=== PATIENT | female | born 1945 | race Asian ===

== ENCOUNTER 2018-01-15 18:05 | Inpatient (IN) | payer MEDICAID, SELFPAY ==
[2018-01-15] MEDS ORDERED: Ketorolac Tromethamine 30 MG/ML VIAL ONE (19:14)
[2018-01-15 19:23] LABS: #Lymphocytes 1.8 thou/uL (1.20-3.40); #Monocytes 1.1 thou/uL (0.11-0.59); #Neutrophils 9.2 thou/uL (1.40-6.50); %Basophils 0.1 % (0.0-1.0); %Eosinophils 0.2 % (0.0-10.0); %Lymphocytes 14.7 % (21.0-51.0); %Monocytes 9.3 % (0.0-10.0); %Neutrophils 75.7 % (42.0-75.0); Hemoglobin 11.4 g/dL (12.0-16.0); Mean Corpuscular Hemoglobin 29.9 pg (27.0-31.0); Mean Corpuscular Volume 85.6 fL (78.0-98.0); Mean Platelet Volume 5.8 fL (7.4-10.4); Platelet Count 263 thou/uL (130-400); RBC Distribution Width 11.2 % (11.5-14.5); Red Blood Cell (RBC) Count 3.81 mill/uL (4.20-5.40); White Blood Cell (WBC) Count 12.1 thou/uL (4.8-10.8)
[2018-01-15 19:42] LABS: ALT (SGPT) 8 U/L (8-55); AST (SGOT) 11 U/L (5-34); Albumin 3.8 g/dL (3.4-4.8); Alkaline Phosphatase 47 U/L (40-150); Anion Gap 16 mmol/L (10-20); BUN (Urea Nitrogen) 20 mg/dL (9.8-20.1); Bilirubin, Total 0.7 mg/dL (0.2-1.2); Calc. Creatinine Clearance 0 mL/min (70-130); Calcium 9.2 mg/dL (7.8-10.44); Carbon Dioxide 21 mmol/L (23-31); Chloride 99 mmol/L (98-107); Estimated GFR-MDRD 40; Globulin 4.2 g/dL (2.4-3.5); Glucose 121 mg/dL (83-110); Potassium 3.8 mmol/L (3.5-5.1); Sodium 132 mmol/L (136-145)
--- NOTE | 2018-01-15 19:52 | RAD ---
RADIOGRAPH LEFT FOOT 3 VIEWS: 01/15/18 HISTORY: 72-year-old female with nontraumatic left foot pain and edema. COMPARISON: None. FINDINGS: At the first MTP joint, there is severe joint space narrowing, moderate osteophytosis, moderate scler osis, and mild irregularity of articular surfaces, without significant hallux valgus. Elsewhere, the rest of the joint spaces are maintained, without erosions or large osteophytes. No per iosteal elevation or destructive osseous lesion. Moderate sized plantar calcaneal enthesophyte. 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 POS: PORTILLO
[2018-01-15] MEDS ORDERED: Ondansetron HCl/PF 4 MG/2 ML Vial IVP PRN (23:58)
[2018-01-15] MEDS ORDERED: Acetaminophen 325 MG TAB PO PRN (23:58)
[2018-01-16 00:34] VITALS: BMI 29.2
[2018-01-16 05:19] LABS: #Eosinphils 0.1 thou/uL (0.0-0.7); #Lymphocytes 2.2 thou/uL (1.20-3.40); #Monocytes 1.1 thou/uL (0.11-0.59); #Neutrophils 5.4 thou/uL (1.40-6.50); %Basophils 0.2 % (0.0-1.0); %Eosinophils 1.2 % (0.0-10.0); %Lymphocytes 24.9 % (21.0-51.0); %Neutrophils 61.8 % (42.0-75.0); Hemoglobin 9.9 g/dL (12.0-16.0); Mean Corpuscular HGB CONC 35.1 g/dL (32.0-36.0); Mean Corpuscular Hemoglobin 30.5 pg (27.0-31.0); Mean Corpuscular Volume 86.8 fL (78.0-98.0); Mean Platelet Volume 6.2 fL (7.4-10.4); Platelet Count 218 thou/uL (130-400); RBC Distribution Width 11.1 % (11.5-14.5); Red Blood Cell (RBC) Count 3.23 mill/uL (4.20-5.40); White Blood Cell (WBC) Count 8.8 thou/uL (4.8-10.8)
[2018-01-16 05:34] LABS: Anion Gap 12 mmol/L (10-20); BUN (Urea Nitrogen) 20 mg/dL (9.8-20.1); Calc. Creatinine Clearance 42 mL/min (70-130); Calcium 8.1 mg/dL (7.8-10.44); Carbon Dioxide 22 mmol/L (23-31); Chloride 106 mmol/L (98-107); Estimated GFR-MDRD 41; Glucose 95 mg/dL (83-110); Potassium 4.6 mmol/L (3.5-5.1); Sodium 135 mmol/L (136-145)
[2018-01-16] MEDS ORDERED: Chloraseptic Spray 180 ml Bottle PO PRN (06:57)
[2018-01-16] MEDS ORDERED: Mag-Al 1200 mg/1200 mg/30 ML UDCUP PO PRN (06:57)
[2018-01-16] MEDS ORDERED: Sodium Chloride 0.65% Nasal 44 ML BOT EA NARE PRN (06:57)
[2018-01-16] MEDS ORDERED: Diabetic Tussin 200 MG/10 ML UDCUP PO PRN (06:57)
[2018-01-16] MEDS ORDERED: Zolpidem Tartrate 5 MG TAB PO PRN (06:57)
[2018-01-16] MEDS ORDERED: Milk Of Magnesia 30 ML UDCUP PO PRN (06:57)
[2018-01-16] MEDS ORDERED: Loperamide HCl 2 MG CAP PO PRN (06:57)
[2018-01-16] MEDS ORDERED: hydrALAZINE 20 MG/ML VIAL SLOW IVP PRN (06:57)
[2018-01-16] MEDS ORDERED: Artificial Tears 18 DROP/0.9 ML EA EYE PRN (06:57)
[2018-01-16] MEDS ORDERED: Senokot 8.6 MG TAB PO PRN (06:57)
[2018-01-16] MEDS ORDERED: Loratadine 10 MG TAB PO PRN (06:57)
[2018-01-16] MEDS ORDERED: Ondansetron ODT 4 MG TAB PO PRN (06:57)
[2018-01-16] MEDS ORDERED: Eucerin (Mineral Oil/Petrolatum,White) 30 gm Jar TOP PRN (06:57)
[2018-01-16] MEDS ORDERED: traMADol HCl 50 MG TAB PO PRN (06:58)
[2018-01-16] MEDS: Enoxaparin Sodium 30 MG/0.3 ML SYRINGE SC SCH (08:14)
[2018-01-16] MEDS: Hydrochlorothiazide 25 MG TAB PO SCH (08:15)
[2018-01-16] MEDS: Atenolol 25 MG TAB PO SCH (08:15)
[2018-01-16] MEDS ORDERED: Famotidine 20 MG TAB PO SCH (09:00)
[2018-01-16] MEDS ORDERED: Enoxaparin Sodium 40 MG/0.4 ML SYRINGE SC SCH (09:00)
[2018-01-16] MEDS ORDERED: Ketorolac Tromethamine 30 MG/ML VIAL IVP PRN (09:48)
--- NOTE | 2018-01-16 10:50 | HP ---
PRIMARY CARE PHYSICIAN: [facility] call admission, sometimes patient sees Dr. Henson. REASON FOR ADMISSION: Bilateral foot cellulitis. HISTORY OF PRESENT ILLNESS: A 72-year-old Polish female with a past medical history of hypertensi on who presented to emergency room with complaint of bilateral foot pain. Patient reports that for t he last 3 days, she is experiencing redness, swelling over both feet and pain is getting worse with w alking. She was initially trying pain medications, but day by day, her pain was getting worse and ye sterday she was having extreme difficulty with walking because of pain in her foot and swelling was g etting worse. She did not have any fever or chills at home, but when she presented to emergency room , she was having low grade fever. She denies any trauma or insect bite. She never had this type of problem before. She denies any history of gout. She denies any other complaints including she denie s UTI symptoms. She denies any cough, chest pain, palpitation, shortness of breath. She denies any calf tenderness. She denies any constipation, diarrhea, melena or hematochezia. REVIEW OF SYSTEMS: The following complete review of systems was negative, unless otherwise mentioned in the HPI or below: Constitutional: Weight loss or gain, ability to conduct usual activities. Skin: Rash, itching. Eyes: Double vision, pain. ENT/Mouth: Nose bleeding, neck stiffness, pain, tenderness. Cardiovascular: Palpitations, dyspnea on exertion, orthopnea. Respiratory: Shortness of breath, wheezing, cough, hemoptysis, fever or night sweats. Gastrointestinal: Poor appetite, abdominal pain, heartburn, nausea, vomiting, constipation, or diarr hea. Genitourinary: Urgency, frequency, dysuria, nocturia. Musculoskeletal: Pain, swelling. Neurologic/Psychiatric: Anxiety, depression. Allergy/Immunologic: Skin rash, bleeding tendency. All review of system reviewed with the patient and negative except as mentioned in the HPI. PAST MEDICAL HISTORY: Hypertension and CKD stage 3. PAST SURGICAL HISTORY: Reviewed and negative. PAST PSYCHIATRIC HISTORY: Reviewed and negative. SOCIAL HISTORY: The patient lives in [place] by herself alone. No history o f smoking, alcohol or other illicit drug abuse. FAMILY HISTORY: No strong family history of premature coronary artery disease, stroke or cancer. No family history of diabetes or gout. EMERGENCY ROOM COURSE: Patient was given vancomycin, IV fluid, and Toradol. ALLERGIES: No known drug allergies. CURRENT HOME MEDICATIONS: Atenolol 25 mg p.o. daily, enalapril 10 mg p.o. daily, hydrochlorothiazide 25 mg p.o. daily, tramadol 50 mg p.o. b.i.d. p.r.n. PHYSICAL EXAMINATION: VITAL SIGNS: On arrival, blood pressure 137/79, pulse 85, respiratory rate 18, temperature 99.2, sat uration 96% on room air and weight 68 kilograms. GENERAL: The patient is currently alert, awake, in no obvious acute distress. HEAD: Normocephalic, atraumatic. EYES: Pupils round, reactive to light. Extraocular muscle intact. ENT: Oropharynx within normal limits. Moist mucous membranes. No oral lesion, no pharyngeal erythe ma, no exudate. NECK: Supple, no JVD, no thyromegaly, no carotid bruit, no jugular venous distention. LUNGS: Clear to auscultation without any rhonchi or rales. CARDIAC: S1 and S2 regular. No murmur, no gallop, no rub. ABDOMEN: Soft, bowel sounds present, nontender, nondistended. No organomegaly, no mass, no suprapub ic tenderness. BACK: Examination unremarkable, no CVA tenderness. EXTREMITIES: Upper extremity passive movement of all joints are normal. Lower extremity; both feet, predominantly left foot is warm, tender, swelling and significant tenderness on the plantar aspect o f both foot, more on the right. Good pulsation. Capillary filling is within normal limit. NEUROLOGIC: Nonfocal examination. SKIN: No skin rash other than cellulitis of both feet. PSYCHIATRIC: Normal affect. SIGNIFICANT LABORATORY DATA: CBC: WBC 12.1, hemoglobin 11.4, platelet 263. BMP: Sodium 132, potas sium 3.8, chloride 99, carbon dioxide 21, BUN 20, creatinine 1.30, glucose 121, calcium 9.2, uric aci d is 9.2, calcium 9.2. LFT: AST 11, ALT 8, alkaline phosphatase 47, albumin 3.8, CRP 13.9. IMAGING DATA: X-ray foot showing severe osteoarthrosis of left first metatarsophalangeal joint. ASSESSMENT AND PLAN/IMPRESSION: 1. Bilateral foot cellulitis, more on the left. At this point our differential is most likely cellu litis, but associated gout problem needs to be excluded and that is why I checked uric acid which is slightly elevated. For benefit of doubt, we will continue with antibiotic therapy with Rocephin 1 gr am q.12 hourly and vancomycin 1 gram q.12 hourly. Pharmacy will adjust vancomycin dose. We will als o treat her with the colchicine 0.6 mg twice daily and patient is advised to avoid uric acid rich jermaine d and she will start allopurinol therapy upon followup visit with primary care physician. We will co ntrol her pain with morphine and Toradol on p.r.n. basis. We will monitor renal function. We will a lso give her IV fluid for her renal insufficiency. 2. Hyponatremia likely related with her use of hydrochlorothiazide. 3. Chronic kidney disease stage 3. We will monitor renal function and avoid nephrotoxin agent. 4. Hypertension. If blood pressure permits, then we will start atenolol, enalapril and hydrochlorot hiazide, but as blood pressure is running little bit low, so we will hold on blood pressure medicatio n for blood pressure less than 120 systolic. 5. Deep venous thrombosis prophylaxis, Lovenox 40 mg subcu daily. 6. Gastrointestinal prophylaxis, Pepcid 20 mg p.o. daily. CODE STATUS: The patient is FULL CODE. The patient does not have any surrogate decision maker. She is . Disposition and plan based on clinical course.
[2018-01-16] MEDS: Sodium Chloride 0.9% 1,000 ML IV SCH ×2 (12:28→21:25)
[2018-01-16] MEDS: cefTRIAXone\\ROCEPHIN 1 GM in Sodium Chloride 0.9% 100 ML IVPB SCH ×2 (13:34→21:31)
[2018-01-16] MEDS: HYDROcodone/Acetaminophen 5/325 mg Tablet PO PRN ×3 (15:48→23:53)
[2018-01-16] MEDS: Vancomycin HCl 1 GM in Premix Bag 1 BAG IVPB SCH (21:25)
[2018-01-16] MEDS: Colchicine 0.6 MG TAB PO SCH (21:25)
[2018-01-17] MEDS: HYDROcodone/Acetaminophen 5/325 mg Tablet PO PRN ×5 (04:21→20:13)
[2018-01-17] MEDS: Sodium Chloride 0.9% 1,000 ML IV SCH ×3 (04:23→20:13)
[2018-01-17 04:41] LABS: #Eosinphils 0.1 thou/uL (0.0-0.7); #Lymphocytes 1.5 thou/uL (1.20-3.40); #Monocytes 0.7 thou/uL (0.11-0.59); #Neutrophils 5.3 thou/uL (1.40-6.50); %Basophils 0.3 % (0.0-1.0); %Eosinophils 1.8 % (0.0-10.0); %Lymphocytes 19.7 % (21.0-51.0); %Neutrophils 69.2 % (42.0-75.0); Hemoglobin 9.4 g/dL (12.0-16.0); Mean Corpuscular HGB CONC 34.4 g/dL (32.0-36.0); Mean Corpuscular Hemoglobin 30.1 pg (27.0-31.0); Mean Corpuscular Volume 87.4 fL (78.0-98.0); Mean Platelet Volume 6.3 fL (7.4-10.4); Platelet Count 223 thou/uL (130-400); RBC Distribution Width 11.1 % (11.5-14.5); Red Blood Cell (RBC) Count 3.11 mill/uL (4.20-5.40); White Blood Cell (WBC) Count 7.6 thou/uL (4.8-10.8)
[2018-01-17 05:10] LABS: Anion Gap 11 mmol/L (10-20); BUN (Urea Nitrogen) 17 mg/dL (9.8-20.1); Calc. Creatinine Clearance 53 mL/min (70-130); Calcium 7.9 mg/dL (7.8-10.44); Carbon Dioxide 21 mmol/L (23-31); Chloride 108 mmol/L (98-107); Estimated GFR-MDRD 53; Glucose 97 mg/dL (83-110); Potassium 3.8 mmol/L (3.5-5.1); Sodium 136 mmol/L (136-145)
[2018-01-17] MEDS: Hydrochlorothiazide 25 MG TAB PO SCH (07:50)
[2018-01-17] MEDS: Colchicine 0.6 MG TAB PO SCH ×2 (07:51→20:09)
[2018-01-17] MEDS: Famotidine 20 MG TAB PO SCH (07:51)
[2018-01-17] MEDS: Enoxaparin Sodium 30 MG/0.3 ML SYRINGE SC SCH (07:51)
[2018-01-17] MEDS: Atenolol 25 MG TAB PO SCH (07:51)
[2018-01-17] MEDS: cefTRIAXone\\ROCEPHIN 1 GM in Sodium Chloride 0.9% 100 ML IVPB SCH (09:13)
--- NOTE | 2018-01-17 11:23 | PDOC.PN ---
- Subjective Encounter Start Date: 01/17/18 Encounter Start Time: 09:30 Patient seen and examined for cellulitis foot, she still has pain in her left foot with walking. No overnight events - Objective Resuscitation Status: Resuscitation Status FULL:Full Resuscitation MAR Reviewed: Yes Vital Signs & Weight: Vital Signs (12 hours) Temp Pulse Resp BP BP BP Pulse Ox 01/17/18 08:31 97.9 F 76 16 121/70 94 L 01/17/18 08:00 98 F 71 18 01/17/18 07:51 71 152/75 H 01/17/18 07:50 152/75 H 01/17/18 01:34 98.0 F 71 18 103/63 96 Weight Weight 149 lb 14.629 oz I&O: 01/16/18 01/17/18 01/18/18 06:59 06:59 06:59 Intake Total 1640 Balance 1640 Result Diagrams: 01/17/18 04:08 01/17/18 04:08 Additional Labs: Accuchecks 01/16/18 10:40 POC Glucose 138 H Phys Exam - Physical Examination Constitutional: NAD HEENT: PERRLA, moist MMs, sclera anicteric Neck: no JVD, supple Respiratory: no wheezing, no rales, no rhonchi Cardiovascular: RRR, no significant murmur, no rub Gastrointestinal: soft, non-tender, no distention, positive bowel sounds Musculoskeletal: no edema, pulses present left foot erythema and tenderness more at left great toe base Neurological: non-focal, normal sensation, moves all 4 limbs Psychiatric: normal affect, A&O x 3 Skin: no rash, normal turgor Dx/Plan (1) Cellulitis of foot, left Code(s): L03.116 - CELLULITIS OF LEFT LOWER LIMB Status: Acute (2) Gout Code(s): M10.9 - GOUT, UNSPECIFIED Status: Acute (3) Hypotension Status: Acute (4) Acute kidney injury Code(s): N17.9 - ACUTE KIDNEY FAILURE, UNSPECIFIED Status: Resolved (5) Hyponatremia Code(s): E87.1 - HYPO-OSMOLALITY AND HYPONATREMIA Status: Acute (6) Anemia, normocytic normochromic Code(s): D64.9 - ANEMIA, UNSPECIFIED Status: Chronic (7) Hypertension Code(s): I10 - ESSENTIAL (PRIMARY) HYPERTENSION Status: Acute - Plan cont current plan of care, plan discussed w/ family, continue antibiotics * continue vancomycin and rocephin * continue colchicine * medication reviewed as below * symptomatic treatment * pain control. Review of Systems - Review of Systems Eyes: negative: Pain, Vision Change, Conjunctivae Inflammation, Eyelid Inflammation, Redness, Other ENT: negative: Ear Pain, Ear Discharge, Nose Pain, Nose Discharge, Nose Congestion, Mouth Pain, Mouth Swelling, Throat Pain, Throat Swelling, Other Respiratory: negative: Cough, Dry, Shortness of Breath, Hemoptysis, SOB with Excertion, Pleuritic Pain, Sputum, Wheezing Cardiovascular: negative: chest pain, palpitations, orthopnea, paroxysmal nocturnal dyspnea, edema, light headedness, other Gastrointestinal: negative: Nausea, Vomiting, Abdominal Pain, Diarrhea, Constipation, Melena, Hematochezia, Other Genitourinary: negative: Dysuria, Frequency, Incontinence, Hematuria, Retention , Other Musculoskeletal: Foot Pain. negative: Neck Pain, Shoulder Pain, Arm Pain, Back Pain, Hand Pain, Leg Pain, Other Skin: negative: Rash, Lesions, Niels, Bruising, Other - Medications/Allergies Allergies/Adverse Reactions: Allergies Allergy/AdvReac Type Severity Reaction Status Date / Time No Known Drug Allergies Allergy Verified 01/16/18 00:13 Medications: Current Medications Acetaminophen (Tylenol) 650 mg PO Q4H PRN PRN Reason: Headache/Fever or Pain Hydrocodone Bitart/Acetaminophen ([place] 5/325) 1 tab PO Q4H PRN PRN Reason: Moderate Pain (4-6) Last Admin: 01/17/18 07:51 Dose: 1 tab Al Hydroxide/Mg Hydroxide (Maalox) 30 ml PO Q6H PRN PRN Reason: Heartburn or Indigestion Artificial Tears (Tears Naturale) 0 drop EA EYE PRN PRN PRN Reason: Dry Eyes Atenolol (Tenormin) 25 mg PO DAILY [facility] Last Admin: 01/17/18 07:51 Dose: 25 mg Colchicine (Colcrys) 0.6 mg PO BID [facility] Last Admin: 01/17/18 07:51 Dose: 0.6 mg Enalapril Maleate (Vasotec) 10 mg PO DAILY [facility] Last Admin: 01/17/18 07:50 Dose: 10 mg Enoxaparin Sodium (Lovenox) 30 mg SC 0900 [facility] Last Admin: 01/17/18 07:51 Dose: 30 mg Famotidine (Pepcid) 20 mg PO DAILY [facility] Last Admin: 01/17/18 07:51 Dose: 20 mg Guaifenesin (Robitussin Sf) 200 mg PO Q4H PRN PRN Reason: Cough Hydralazine HCl (Apresoline) 10 mg SLOW IVP Q4H PRN PRN Reason: Systolic BP > 180 Hydrochlorothiazide (Hydrochlorothiazide) 25 mg PO DAILY [facility] Last Admin: 01/17/18 07:50 Dose: 25 mg Ceftriaxone Sodium 1 gm/ (Sodium Chloride) 100 mls @ 200 mls/hr IVPB 1000,2200 [facility] Last Admin: 01/17/18 09:13 Dose: 100 mls Vancomycin HCl 1 gm/ Device 200 mls @ 200 mls/hr IVPB Q24HR@2200 [facility] Last Admin: 01/16/18 21:25 Dose: 200 mls Sodium Chloride (Normal Saline 0.9%) 1,000 mls @ 120 mls/hr IV .Q8H20M [facility] Last Admin: 01/17/18 11:02 Dose: 1,000 mls Ketorolac Tromethamine (Toradol) 15 mg IVP Q6H PRN PRN Reason: Pain Stop: 01/21/18 09:49 Loperamide HCl (Imodium) 2 mg PO PRN PRN PRN Reason: Diarrhea/Loose Stools Loratadine (Claritin) 10 mg PO DAILYPRN PRN PRN Reason: Sinus Symptoms Magnesium Hydroxide (Milk Of Magnesium) 30 ml PO DAILYPRN PRN PRN Reason: Constipation Mineral Oil/White Petrolatum (Eucerin Cream) 0 gm TOP BIDPRN PRN PRN Reason: Dry Skin Miscellaneous Medication (Pharmacy To Dose) 1 each IVPB PRN PRN PRN Reason: Pharmacy to dose Ondansetron HCl (Zofran) 4 mg IVP Q6H PRN PRN Reason: Nausea/Vomiting Ondansetron HCl (Zofran Odt) 4 mg PO Q6H PRN PRN Reason: Nausea/Vomiting Phenol (Chloraseptic [place] 180 Ml Bot) 0 ml PO PRN PRN PRN Reason: Sore Throat Senna (Senokot) 2 tab PO HSPRN PRN PRN Reason: Constipation Sodium Chloride ([place] Nasal [place] 0.65%) 0 ml EA NARE QIDPRN PRN PRN Reason: Nasal Congestion Sodium Chloride (Flush - Normal Saline) 10 ml IVF Q12HR [facility] Last Admin: 01/17/18 07:52 Dose: Not Given Sodium Chloride (Flush - Normal Saline) 10 ml IVF PRN PRN PRN Reason: Saline Flush Tramadol HCl (Ultram) 50 mg PO BIDPRN PRN PRN Reason: Pain Zolpidem Tartrate (Ambien) 5 mg PO HSPRN PRN PRN Reason: Insomnia
[2018-01-17 21:24] LABS: Vancomycin, Trough 10.4 ug/mL
[2018-01-17] MEDS: Vancomycin HCl 1 GM in Premix Bag 1 BAG IVPB SCH (21:40)
[2018-01-17] MEDS ORDERED: cefTRIAXone\\ROCEPHIN 1 GM in Sodium Chloride 0.9% 100 ML IVPB SCH (23:00)
[2018-01-18] MEDS: HYDROcodone/Acetaminophen 5/325 mg Tablet PO PRN ×4 (00:37→13:50)
[2018-01-18] MEDS: Sodium Chloride 0.9% 1,000 ML IV SCH (04:25)
[2018-01-18 08:28] VITALS: BP 160/78; TEMP 97.4
[2018-01-18] MEDS: Famotidine 20 MG TAB PO SCH (08:58)
[2018-01-18] MEDS: Atenolol 25 MG TAB PO SCH (08:58)
[2018-01-18] MEDS: Colchicine 0.6 MG TAB PO SCH (08:58)
[2018-01-18] MEDS: Enoxaparin Sodium 30 MG/0.3 ML SYRINGE SC SCH (08:58)
[2018-01-18] MEDS: Hydrochlorothiazide 25 MG TAB PO SCH (08:58)
--- NOTE | 2018-01-18 11:29 | PDOC.PN ---
- Subjective Encounter Start Date: 01/18/18 Encounter Start Time: 09:20 Patient seen and examined. No new complaints. No overnight events - Objective Resuscitation Status: Resuscitation Status FULL:Full Resuscitation MAR Reviewed: Yes Vital Signs & Weight: Vital Signs (12 hours) Temp Pulse Resp BP BP Pulse Ox 01/18/18 08:58 74 160/78 H 01/18/18 08:00 97.4 F L 74 16 160/78 H 96 01/18/18 04:17 98.1 F 75 18 125/69 96 Weight Weight 149 lb 14.629 oz I&O: 01/17/18 01/18/18 01/19/18 06:59 06:59 06:59 Intake Total 1640 2550 120 Balance 1640 2550 120 Result Diagrams: 01/17/18 04:08 01/17/18 04:08 Phys Exam - Physical Examination Constitutional: NAD HEENT: PERRLA, moist MMs, sclera anicteric Neck: no JVD, supple Respiratory: no wheezing, no rales, no rhonchi Cardiovascular: RRR, no significant murmur, no rub Gastrointestinal: soft, non-tender, no distention, positive bowel sounds Musculoskeletal: no edema, pulses present Neurological: non-focal, normal sensation, moves all 4 limbs Psychiatric: normal affect, A&O x 3 Skin: no rash, normal turgor Dx/Plan (1) Cellulitis of foot, left Code(s): L03.116 - CELLULITIS OF LEFT LOWER LIMB Status: Acute (2) Gout Code(s): M10.9 - GOUT, UNSPECIFIED Status: Acute (3) Hypotension Status: Acute (4) Acute kidney injury Code(s): N17.9 - ACUTE KIDNEY FAILURE, UNSPECIFIED Status: Resolved (5) Hyponatremia Code(s): E87.1 - HYPO-OSMOLALITY AND HYPONATREMIA Status: Acute (6) Anemia, normocytic normochromic Code(s): D64.9 - ANEMIA, UNSPECIFIED Status: Chronic (7) Hypertension Code(s): I10 - ESSENTIAL (PRIMARY) HYPERTENSION Status: Acute - Plan cont current plan of care * medication reviewed as below * symptomatic treatment * stable for discharge * see discharge summery for details. Review of Systems - Review of Systems ENT: negative: Ear Pain, Ear Discharge, Nose Pain, Nose Discharge, Nose Congestion, Mouth Pain, Mouth Swelling, Throat Pain, Throat Swelling, Other Respiratory: negative: Cough, Dry, Shortness of Breath, Hemoptysis, SOB with Excertion, Pleuritic Pain, Sputum, Wheezing Cardiovascular: negative: chest pain, palpitations, orthopnea, paroxysmal nocturnal dyspnea, edema, light headedness, other Gastrointestinal: negative: Nausea, Vomiting, Abdominal Pain, Diarrhea, Constipation, Melena, Hematochezia, Other Genitourinary: negative: Dysuria, Frequency, Incontinence, Hematuria, Retention , Other Musculoskeletal: negative: Neck Pain, Shoulder Pain, Arm Pain, Back Pain, Hand Pain, Leg Pain, Foot Pain, Other Skin: negative: Rash, Lesions, Niels, Bruising, Other - Medications/Allergies Allergies/Adverse Reactions: Allergies Allergy/AdvReac Type Severity Reaction Status Date / Time No Known Drug Allergies Allergy Verified 01/16/18 00:13 Medications: Current Medications Acetaminophen (Tylenol) 650 mg PO Q4H PRN PRN Reason: Headache/Fever or Pain Hydrocodone Bitart/Acetaminophen ([place] 5/325) 1 tab PO Q4H PRN PRN Reason: Moderate Pain (4-6) Last Admin: 01/18/18 10:03 Dose: 1 tab Al Hydroxide/Mg Hydroxide (Maalox) 30 ml PO Q6H PRN PRN Reason: Heartburn or Indigestion Artificial Tears (Tears Naturale) 0 drop EA EYE PRN PRN PRN Reason: Dry Eyes Atenolol (Tenormin) 25 mg PO DAILY [facility] Last Admin: 01/18/18 08:58 Dose: 25 mg Colchicine (Colcrys) 0.6 mg PO BID [facility] Last Admin: 01/18/18 08:58 Dose: 0.6 mg Enalapril Maleate (Vasotec) 10 mg PO DAILY [facility] Last Admin: 01/18/18 08:58 Dose: 10 mg Enoxaparin Sodium (Lovenox) 30 mg SC 0900 [facility] Last Admin: 01/18/18 08:58 Dose: 30 mg Famotidine (Pepcid) 20 mg PO DAILY [facility] Last Admin: 01/18/18 08:58 Dose: 20 mg Guaifenesin (Robitussin Sf) 200 mg PO Q4H PRN PRN Reason: Cough Hydralazine HCl (Apresoline) 10 mg SLOW IVP Q4H PRN PRN Reason: Systolic BP > 180 Hydrochlorothiazide (Hydrochlorothiazide) 25 mg PO DAILY [facility] Last Admin: 01/18/18 08:58 Dose: 25 mg Vancomycin HCl 1 gm/ Device 200 mls @ 200 mls/hr IVPB Q24HR@2200 [facility] Last Admin: 01/17/18 21:40 Dose: 200 mls Sodium Chloride (Normal Saline 0.9%) 1,000 mls @ 120 mls/hr IV .Q8H20M [facility] Last Admin: 01/18/18 04:25 Dose: Not Given Ceftriaxone Sodium 1 gm/ (Sodium Chloride) 100 mls @ 200 mls/hr IVPB 1100,2300 [facility] Last Admin: 01/17/18 23:12 Dose: 100 mls Ketorolac Tromethamine (Toradol) 15 mg IVP Q6H PRN PRN Reason: Pain Stop: 01/21/18 09:49 Loperamide HCl (Imodium) 2 mg PO PRN PRN PRN Reason: Diarrhea/Loose Stools Loratadine (Claritin) 10 mg PO DAILYPRN PRN PRN Reason: Sinus Symptoms Magnesium Hydroxide (Milk Of Magnesium) 30 ml PO DAILYPRN PRN PRN Reason: Constipation Mineral Oil/White Petrolatum (Eucerin Cream) 0 gm TOP BIDPRN PRN PRN Reason: Dry Skin Miscellaneous Medication (Pharmacy To Dose) 1 each IVPB PRN PRN PRN Reason: Pharmacy to dose Ondansetron HCl (Zofran) 4 mg IVP Q6H PRN PRN Reason: Nausea/Vomiting Ondansetron HCl (Zofran Odt) 4 mg PO Q6H PRN PRN Reason: Nausea/Vomiting Phenol (Chloraseptic [place] 180 Ml Bot) 0 ml PO PRN PRN PRN Reason: Sore Throat Senna (Senokot) 2 tab PO HSPRN PRN PRN Reason: Constipation Sodium Chloride ([place] Nasal [place] 0.65%) 0 ml EA NARE QIDPRN PRN PRN Reason: Nasal Congestion Sodium Chloride (Flush - Normal Saline) 10 ml IVF Q12HR [facility] Last Admin: 01/18/18 09:06 Dose: 10 ml Sodium Chloride (Flush - Normal Saline) 10 ml IVF PRN PRN PRN Reason: Saline Flush Tramadol HCl (Ultram) 50 mg PO BIDPRN PRN PRN Reason: Pain Zolpidem Tartrate (Ambien) 5 mg PO HSPRN PRN PRN Reason: Insomnia
--- NOTE | 2018-01-18 12:00 | DIS ---
DATE OF ADMISSION: 01/15/2018 DATE OF DISCHARGE: 01/18/2018 PRIMARY CARE PHYSICIAN: [facility] call admission. DISCHARGE DISPOSITION: Home. PRIMARY DISCHARGE DIAGNOSES: 1. Suspected cellulitis of left foot. 2. Gouty arthropathy. 3. Hyponatremia. 4. Acute kidney injury. 5. Hypotension, resolved. SECONDARY DISCHARGE DIAGNOSES: Hypertension, normocytic normochromic anemia, hyperuricemia. PRIMARY PROCEDURE/OPERATION: None. RADIOLOGICAL INVESTIGATION: Foot x-ray showed left first metatarsal joint arthropathy. SIGNIFICANT LABORATORY DATA: WBC 7.6, hemoglobin 9.4, platelet 223. Sodium 136, creatinine 1.02, ca lcium 7.9, CRP 13.9. Blood culture negative. DISCHARGE MEDICATIONS: Keflex 500 mg p.o. t.i.d. for 10 days, colchicine 0.6 mg p.o. b.i.d. for 7 da ys, prednisone 20 mg p.o. daily for 7 days, allopurinol 100 mg p.o. daily, start after finishing colc hicine and prednisone, atenolol 25 mg p.o. daily, enalapril 10 mg p.o. daily, tramadol 50 mg p.o. b.i .d. p.r.n. CONTRAINDICATIONS: None. CODE STATUS: FULL CODE. INPATIENT CONSULTANTS: None. ALLERGIES: No known drug allergy. DISCHARGE PLAN: Post hospital, patient will follow up with Dr. Henson. HOSPITAL COURSE: A 72-year-old female who was admitted for left foot swelling, erythema and tenderne ss. The patient's pain was getting worse with walking, suspected for cellulitis on admission. X-ray of foot showed severe osteoarthritis of left first metatarsophalangeal joint. We checked uric acid which was high, CRP was elevated. She was treated for cellulitis with vancomycin and Rocephin. Her leukocytosis improved. We also started treating gout with colchicine and prednisone. Patient had so me improvement in her pain. We are finishing complete course of antibiotic therapy for benefit of do ubt. Most likely this patient has underlying gouty arthropathy. I advised her to follow up with [facility] physician up after discharge. We prescribed allopurinol to start after finishing colchicine therapy. We also prescribed prednisone therapy because she had persistent pain even with the colchic ine. She had hyponatremia and acute kidney injury that was improved with IV fluid. We discontinued hydrochlorothiazide. She is given necessary patient instruction to start antihypertensive medication . The patient is seen and examined at bedside today. Please see my progress note from today. Plan of care discussed with the family member and patient in detail.
== END 2018-01-18 14:11 | disposition home or self-care (01) | DRG 603 ==
LOC: ERS 18:05 → T4-B 22:10
PROVIDERS: ADMIT Hospitalist; ATTEND Hospitalist
DX: L03.116 Cellulitis of left lower limb (principal); E87.1 Hypo-osmolality and hyponatremia; N17.9 Acute kidney failure, unspecified; L03.115 Cellulitis of right lower limb; M10.9 Gout, unspecified; I95.9 Hypotension, unspecified; I12.9 Hypertensive chronic kidney disease with stage 1 through stage 4 chronic kidney disease, or unspecified chronic kidney disease; N18.3 Chronic kidney disease, stage 3 (moderate); D63.1 Anemia in chronic kidney disease; M19.072 Primary osteoarthritis, left ankle and foot; Z79.899 Other long term (current) drug therapy
CPT/HCPCS: 36415; 36416; 80048; 80053; 80202; 83605; 84550; 85025; 85652; 86140; 87040; 96361; 96365; 96375; A4216; G8978-GP-CL; G8979-GP-CJ; J0696; J1650; J1885; J2920; J3370; J7050

== ENCOUNTER 2018-02-04 15:29 | Inpatient (IN) | payer MEDICAID ==
--- NOTE | 2018-02-04 17:22 | RAD ---
3 VIEWS LEFT FOOT: Date: 02/04/18 COMPARISON: None. HISTORY: Pain. FINDINGS: Severe degenerative change of the first tarsophalangeal joint noted with joint space narrowing, subch ondral sclerosis, and osteophyte formation. There are degenerative changes involving the fifth proximal interphalangeal joint, as well as the dis brody interphalangeal joint of the second and third toes. There is enthesophyte formation at the origin of the plantar aponeurosis. There is dorsal degenerative change involving the talonavicular joint. IMPRESSION: Multilevel degenerative change. No acute osseous abnormality. POS: DUANE
--- NOTE | 2018-02-04 17:23 | RAD ---
2 VIEWS RIGHT HIP: Date: 02/04/18 COMPARISON: None. HISTORY: Right hip pain. FINDINGS: There is mild superior joint space narrowing. No fracture or evidence of dislocation. IMPRESSION: No acute findings. POS: PORTILLO
--- NOTE | 2018-02-04 17:24 | RAD ---
3 VIEWS RIGHT FOOT: Date: 02/04/18 COMPARISON: None. HISTORY: Pain. Difficulty walking. FINDINGS: Prominent degenerative changes are noted at the first metatarsophalangeal joint with joint space narr owing, subchondral sclerosis, and osteophyte formation. There is dorsal degenerative change involving the midfoot and the talonavicular joint. There is prominent enthesophyte formation at the origin of the plantar aponeurosis. IMPRESSION: Degenerative changes as above. No acute osseous abnormality seen. POS: PORTILLO
[2018-02-04 18:01] LABS: #Eosinphils 0.1 thou/uL (0.0-0.7); #Lymphocytes 1.7 thou/uL (1.20-3.40); #Neutrophils 7.3 thou/uL (1.40-6.50); %Basophils 0.1 % (0.0-1.0); %Eosinophils 0.5 % (0.0-10.0); %Lymphocytes 16.6 % (21.0-51.0); %Monocytes 9.9 % (0.0-10.0); %Neutrophils 72.9 % (42.0-75.0); Hemoglobin 11.1 g/dL (12.0-16.0); Mean Corpuscular HGB CONC 34.5 g/dL (32.0-36.0); Mean Corpuscular Hemoglobin 29.9 pg (27.0-31.0); Mean Corpuscular Volume 86.7 fL (78.0-98.0); Platelet Count 248 thou/uL (130-400); RBC Distribution Width 11.4 % (11.5-14.5); Red Blood Cell (RBC) Count 3.71 mill/uL (4.20-5.40); White Blood Cell (WBC) Count 10.1 thou/uL (4.8-10.8)
[2018-02-04 18:31] LABS: ALT (SGPT) 10 U/L (8-55); AST (SGOT) 12 U/L (5-34); Albumin 3.6 g/dL (3.4-4.8); Alkaline Phosphatase 51 U/L (40-150); Anion Gap 16 mmol/L (10-20); BUN (Urea Nitrogen) 15 mg/dL (9.8-20.1); Bilirubin, Total 0.5 mg/dL (0.2-1.2); CRP (Inflammatory) 9.07 mg/dL (= or < 0.5); Calc. Creatinine Clearance 0 mL/min (70-130); Calcium 9.5 mg/dL (7.8-10.44); Carbon Dioxide 24 mmol/L (23-31); Chloride 98 mmol/L (98-107); Estimated GFR-MDRD 50; Globulin 3.6 g/dL (2.4-3.5); Glucose 108 mg/dL (83-110); Potassium 4.1 mmol/L (3.5-5.1); Protein, Total 7.2 g/dL (6.0-8.3); Sodium 134 mmol/L (136-145)
[2018-02-04] MEDS ORDERED: cefTRIAXone\\ROCEPHIN 1 GM VIAL ONE (20:21)
[2018-02-04] MEDS ORDERED: Ondansetron HCl/PF 4 MG/2 ML Vial IVP PRN ×2 (21:31→23:14)
[2018-02-04] MEDS ORDERED: HYDROcodone/Acetaminophen 5/325 mg Tablet PO PRN ×2 (21:31)
[2018-02-04] MEDS ORDERED: Ondansetron ODT 4 MG TAB SL PRN (21:31)
[2018-02-04] MEDS ORDERED: cefTRIAXone\\ROCEPHIN 1 GM in Sodium Chloride 0.9% 100 ML IVPB SCH (21:45)
[2018-02-04 22:19] VITALS: BMI 31.9
[2018-02-04] MEDS ORDERED: hydrALAZINE 20 MG/ML VIAL SLOW IVP PRN (23:14)
[2018-02-04] MEDS ORDERED: cloNIDine 0.1 MG TAB PO PRN (23:14)
[2018-02-04] MEDS ORDERED: traMADol HCl 50 MG TAB PO PRN (23:14)
[2018-02-04] MEDS ORDERED: Acetaminophen 500 MG TAB PO PRN (23:14)
[2018-02-04] MEDS ORDERED: Ondansetron ODT 4 MG TAB PO PRN (23:14)
[2018-02-04] MEDS ORDERED: predniSONE 20 MG TAB PO SCH (23:15)
[2018-02-04] MEDS: Sodium Chloride 0.9% 1,000 ML IV SCH (23:40)
--- NOTE | 2018-02-05 03:58 | HP ---
DATE OF ADMISSION: 02/04/2018 PRIMARY CARE PHYSICIAN: Dr. Sixto Carpenter. CHIEF COMPLAINT: Left ankle pain. HISTORY OF PRESENT ILLNESS: This is a 72-year-old female who presents to [facility], complaining of increasing left ankle and toe pain over the last 24 to 48 hours. The patient was recently admitted from 01/15/2018 to 01/18/2018 for suspected gouty arthropathy and mild cellulit is of the left foot. The patient was treated with IV antibiotics and transitioned to Keflex for 10 d ays as well as colchicine and prednisone. The patient apparently completed the prescription for the colchicine and prednisone, and currently takes allopurinol daily. The patient noted increasing swell ing to the left ankle region, which was painful and difficult to walk on. The patient began using a rolling walker, whereas previously she had stopped the use of rolling walker after resolution of the symptoms approximately a week after discharge on 01/18/2018. No specific direct trauma, redness, but has noted swelling in the ankle region. The patient also noted some pain in the right leg, however, has been modifying her gait due to the pain in the left foot. History is obtained after discussions with the patient's daughter as patient is unable to provide a complete history due to language barri er. In the emergency room, the patient underwent general evaluation including plain radiographic alejandra ging of the feet and right hip region showing degenerative changes without an acute process or eviden ce of fracture. The patient received Rocephin and vancomycin in the emergency room and was transferr ed to the medical floor for further evaluation. PAST MEDICAL HISTORY: 1. Gouty arthropathy with recent admission from 01/15/2018 to 01/18/2018. 2. Question of cellulitis of lower extremity. 3. Hypertension. 4. Chronic kidney disease, stage 3. PAST SURGICAL HISTORY: Reviewed and negative. CURRENT MEDICATIONS: 1. Allopurinol 100 mg 1 tab p.o. daily. 2. Atenolol 25 mg 1 tab p.o. daily. 3. Colchicine 0.6 mg p.o. b.i.d. 4. Enalapril 10 mg p.o. daily. 5. Tramadol 50 mg p.o. b.i.d. ALLERGIES: No known drug allergies. FAMILY HISTORY: No inheritable diseases per family and patient report. SOCIAL HISTORY: Patient resides in [place], living with family members, accompanied by her daugh ter-in-law in the hospital. No current alcohol, tobacco, or illicit drug use. The patient originall y from [place], residing in [place] area over the last 3 years. Ambulates typically without ass istive device. REVIEW OF SYSTEMS: The following complete review of systems was negative, unless otherwise mentioned in the HPI or below: Constitutional: Weight loss or gain, ability to conduct usual activities. Sk in: Rash, itching. Eyes: Double vision, pain. ENT/Mouth: Nose bleeding, neck stiffness, pain, te nderness. Cardiovascular: Palpitations, dyspnea on exertion, orthopnea. Respiratory: Shortness of breath, wheezing, cough, hemoptysis, fever or night sweats. Gastrointestinal: Poor appetite, abdom inal pain, heartburn, nausea, vomiting, constipation, or diarrhea. Genitourinary: Urgency, frequenc y, dysuria, nocturia. Musculoskeletal: Pain, swelling. Neurologic/Psychiatric: Anxiety, depressio n. Allergy/Immunologic: Skin rash, bleeding tendency. PHYSICAL EXAMINATION: VITAL SIGNS: On admission, blood pressure 125/62, pulse 74, respiratory rate 18, temperature 99.0 de grees Fahrenheit, O2 saturation 96% on room air. GENERAL APPEARANCE: This is a 72-year-old female, alert, smiling, responsive, in no acute distress. HEENT: Pupils are equal, round, and reactive to light and accommodation. Extraocular muscles are in tact. No scleral icterus, no conjunctival injection. Nares patent. OP is clear. Multiple missing teeth. NECK: Supple. No cervical adenopathy, no thyromegaly, no carotid bruits, no JVD appreciated. Cervi jaylin spine with full active and passive range of motion. No meningeal signs appreciated. CHEST: Lungs are clear to auscultation bilaterally. CARDIOVASCULAR: S1, S2, without noted murmur, rub, or gallop. ABDOMEN: Rounded, soft, nontender, nondistended. Bowel sounds are positive in all four quadrants. No hepatosplenomegaly, no abdominal bruits, no rebound or guarding appreciated. EXTREMITIES: Warm and dry with fair turgor. Mild edema and fluctuance of the lateral and medial mal leolus of the left lower extremity. Mild tenderness to palpation in the same region. Mild pink disc oloration. Positive tenderness to palpation at the metatarsophalangeal joint of the great toe. No c nini tenderness elicited. Pulses are palpable distally at the dorsalis pedis, posterior tibial, and p opliteal arteries bilaterally. Capillary refill less than 2 seconds. NEUROLOGIC: Cranial nerves II through XII are grossly intact. No focal or lateralizing signs apprec iated. PERTINENT LABORATORY AND X-RAY FINDINGS: Basic metabolic profile shows creatinine 1.07, estimated GF R 50, calcium 9.5. CRP 9.07, previously noted 13.96 on 01/15/2018. CBC showed a white blood cell co unt of 10.1, hemoglobin 11, hematocrit 32, platelet count 248,000 with normal differential. Three vi ews of the left foot dated 02/04/2018, showed degenerative changes of multiple joints without evidenc e of acute fracture or dislocation. Two views of the right hip dated 02/04/2018, showed no evidence of fracture or dislocation. ASSESSMENT AND PLAN: 1. Acute on chronic gouty arthropathy of the left ankle and foot. The patient will be admitted to [facility] medical floor. We will continue prednisone 40 mg p.o. daily. Discontinue IV antibiotics. Contin ue colchicine 0.6 mg p.o. b.i.d. Continue allopurinol 100 mg daily. We will consult [facility] for arthrocentesis to confirm evidence of uric acid crystals and rule out septic arthriti s. No current evidence to suggest septic arthritis, likely main component of gouty arthropathy. 2. Chronic kidney disease, stage 3. Avoid nephrotoxic agents and contrast media. Continue intraven ous normal saline 75 mL per hour. Repeat creatinine in the a.m. 3. Hypertension. Resume home regimen to include atenolol 25 mg daily and enalapril 10 mg daily. Se rial blood pressure monitoring. 4. Hyponatremia, mild. Suspect secondary to hydrochlorothiazide. Continue intravenous normal salin e and repeat sodium level in the a.m. 5. Prophylaxis. Sequential compression devices while in bed. Pepcid 20 mg p.o. b.i.d. 6. Code status is FULL. Surrogate medical decision maker is patient's son.
[2018-02-05 05:56] LABS: Anion Gap 13 mmol/L (10-20); BUN (Urea Nitrogen) 15 mg/dL (9.8-20.1); Calc. Creatinine Clearance 45 mL/min (70-130); Calcium 9.3 mg/dL (7.8-10.44); Carbon Dioxide 23 mmol/L (23-31); Chloride 102 mmol/L (98-107); Estimated GFR-MDRD 43; Glucose 197 mg/dL (83-110); Potassium 4.4 mmol/L (3.5-5.1); Sodium 134 mmol/L (136-145)
[2018-02-05 06:34] LABS: Band 14 % (5-11); Lymphocytes 12 % (21-51); MDiff Complete? YES; Mean Corpuscular HGB CONC 33.4 g/dL (32.0-36.0); Mean Corpuscular Hemoglobin 30.2 pg (27.0-31.0); Mean Corpuscular Volume 90.5 fL (78.0-98.0); Mean Platelet Volume 7.7 fL (7.4-10.4); Neutrophil 74 % (42-75); Platelet Count 209 thou/uL (130-400); RBC Distribution Width 11.6 % (11.5-14.5); Red Blood Cell (RBC) Count 3.63 mill/uL (4.20-5.40); White Blood Cell (WBC) Count 8.9 thou/uL (4.8-10.8)
--- NOTE | 2018-02-05 08:03 | CON ---
DATE OF CONSULTATION: 02/05/2018 REASON FOR CONSULTATION: Left ankle pain. HISTORY OF PRESENT ILLNESS: Ms. Cintron is a 72-year-old female who was admitted to the hospital for left ankle pain and possible cellulitis. She has been treated for gout in the past. She recently co mpleted a course of colchicine and prednisone. She is taking allopurinol daily. She has been on ant ibiotics. The patient is significantly better now. She denies much pain in the ankle. She has good range of motion. Her erythema is resolving. She has been able to get out of bed. She remains on a ntibiotics. Orthopedics was consulted to rule out septic joint. PAST MEDICAL HISTORY: 1. Gouty arthritis. 2. History of cellulitis 3. History of hypertension. 4. Chronic kidney disease. PAST SURGICAL HISTORY: Negative. MEDICATIONS: Allopurinol, colchicine, tramadol, atenolol, enalapril. ALLERGIES: No known drug allergies. FAMILY MEDICAL HISTORY: Noncontributory. SOCIAL HISTORY: The patient denies tobacco, alcohol or drug use. REVIEW OF SYSTEMS: Difficult to obtain because of language barrier. She does deny any significant p ain. PHYSICAL EXAMINATION: VITAL SIGNS: Temperature is 98.5. She did have a fever of 100.7 earlier, respiratory 20, pulse is 8 3, blood pressure 108/72. GENERAL: She is alert, sitting upright, pleasant, in no apparent distress. HEENT: Normocephalic, atraumatic. RESPIRATORY: Breathing comfortably. MUSCULOSKELETAL: The left lower extremity has resolving swelling. There is minimal edema. No tende rness to palpation. No increased warmth. No significant redness. Full and equal range of motion of the ankle bilaterally. No significant ankle effusion. IMAGES: Foot x-rays are reviewed. There are degenerative changes of the interphalangeal and midfoot joints. No acute findings. IMPRESSION: Elderly female with a history of gout of the left ankle, now resolving. PLAN: At this point, I see no reason to aspirate the joint. The patient seems to making a good blaine very with minimal symptoms. I would continue treatment for her gout. This is consistent with her hi story and physical exam. Please call with questions or worsening in her condition. For now, we will sign off.
[2018-02-05] MEDS: Famotidine 20 MG TAB PO SCH (08:54)
[2018-02-05] MEDS: Atenolol 25 MG TAB PO SCH (08:54)
[2018-02-05] MEDS: predniSONE 20 MG TAB PO SCH (08:54)
[2018-02-05] MEDS: Allopurinol 100 MG TAB PO SCH (08:54)
[2018-02-05] MEDS ORDERED: Colchicine 0.6 MG TAB PO SCH (09:00)
[2018-02-05] MEDS ORDERED: Prevnar 13-Val Conj/PF 0.5 ML SYRINGE IM ONE (09:00)
[2018-02-05] MEDS: Sodium Chloride 0.9% 1,000 ML IV SCH (12:35)
--- NOTE | 2018-02-06 07:50 | PDOC.PN ---
- Subjective Encounter Start Date: 02/05/18 - Objective Resuscitation Status: Resuscitation Status FULL:Full Resuscitation Vital Signs & Weight: Vital Signs (12 hours) Temp Pulse Resp BP Pulse Ox 02/06/18 07:46 98.1 F 71 20 155/86 H 96 02/05/18 20:00 98.2 F 80 20 124/74 96 Weight Weight 153 lb I&O: 02/05/18 02/06/18 02/07/18 06:59 06:59 06:59 Intake Total 810 1520 Balance 810 1520 Result Diagrams: 02/05/18 05:16 02/05/18 05:16 Dx/Plan (1) Gout attack Code(s): M10.9 - GOUT, UNSPECIFIED Status: Acute (2) Left foot pain Code(s): M79.672 - PAIN IN LEFT FOOT Status: Acute (3) CKD (chronic kidney disease) Code(s): N18.9 - CHRONIC KIDNEY DISEASE, UNSPECIFIED Status: Acute - Plan will continue steroids for now -: pt on allopurinol will continue -: no intervention per ortho and agree since her inflammation has improved * .
[2018-02-06] MEDS: Allopurinol 100 MG TAB PO SCH (07:51)
[2018-02-06] MEDS: Famotidine 20 MG TAB PO SCH (07:52)
[2018-02-06] MEDS: Atenolol 25 MG TAB PO SCH (07:52)
[2018-02-06] MEDS: predniSONE 20 MG TAB PO SCH (09:06)
[2018-02-06 11:32] VITALS: BP 116/71; TEMP 97.9
--- NOTE | 2018-02-07 02:34 | DIS ---
DATE OF ADMISSION: 02/04/2018 DATE OF DISCHARGE: 02/06/2018 DISCHARGE DIAGNOSES: 1. Acute gout flare. 2. Left foot pain. 3. Chronic kidney disease. HOSPITAL COURSE: The patient is a very pleasant 72-year-old female with a history of chronic kidney disease, hypertension, hyperlipidemia, and newly diagnosed gout, who came into the hospital for worse marilyn left ankle pain. The patient underwent foot x-rays that only indicated degenerative changes. N o acute osseous abnormalities were noted. At this time, orthopedic was consulted and there was no ak ed for aspiration of her joint. The patient was put on 40 mg of prednisone and her allopurinol was c ontinued. The patient's left ankle continued to improve. She has been able to ambulate with her wal ker without any difficulties. She will be discharged home. She has been educated in her [facility] uage and also this was transmitted to her [id number], about a low pureed diet. Nutrition was ca lled to provide the patient information about a low pureed diet. Also, the patient was started on so me steroids with a slow taper. She will also continue her allopurinol. MEDICATIONS: As the following, enalapril 10 mg daily; atenolol 20 mg daily; allopurinol 100 mg daily ; tramadol 50 mg b.i.d. p.r.n.; prednisone she is going to take 40 mg x2, then 30 mg x3, then 20 mg x 3 and 10 mg x3 and stop; Pepcid 20 mg daily. PHYSICAL EXAMINATION. VITAL SIGNS: 97.9, 61, 20, 97% room air, 116/71. GENERAL: She is awake, alert, oriented x3, does not appear in distress. CARDIOVASCULAR: S1, S2 present. No murmurs, rubs or gallops. ABDOMEN: Soft, nontender. Bowel sounds are present x2. EXTREMITIES: No edema. Pedal pulses are present x2. Left ankle looks good. No abnormalities noted .
== END 2018-02-06 13:33 | disposition home or self-care (01) | DRG 554 ==
LOC: ERS 15:29 → T4-A 20:19
PROVIDERS: ADMIT Internal Medicine; ATTEND Internal Medicine
DX: M10.9 Gout, unspecified (principal); E87.1 Hypo-osmolality and hyponatremia; N18.3 Chronic kidney disease, stage 3 (moderate); I12.9 Hypertensive chronic kidney disease with stage 1 through stage 4 chronic kidney disease, or unspecified chronic kidney disease; E78.5 Hyperlipidemia, unspecified
CPT/HCPCS: 36415; 80048; 80053; 85007; 85025; 85027; 85652; 86140; 87040; 90471; 90670; 96374; G0009; J0696; J3370; J7050; J7506

== ENCOUNTER 2021-08-23 21:49 | Inpatient (IN) | payer SELFPAY ==
[2021-08-23 22:54] LABS: #Eosinphils 0.1 thou/uL (0.0-0.7); #Lymphocytes 2.5 thou/uL (1.20-3.40); #Monocytes 0.7 thou/uL (0.11-0.59); #Neutrophils 4.8 thou/uL (1.40-6.50); %Basophils 0.2 % (0.0-1.0); %Eosinophils 1.5 % (0.0-10.0); %Lymphocytes 30.9 % (21.0-51.0); %Monocytes 8.8 % (0.0-10.0); %Neutrophils 58.6 % (42.0-75.0); Hemoglobin 12.8 g/dL (12.0-16.0); Mean Corpuscular HGB CONC 33.7 g/dL (32.0-36.0); Mean Corpuscular Hemoglobin 30.3 pg (27.0-31.0); Mean Corpuscular Volume 89.7 fL (78.0-98.0); Mean Platelet Volume 6.6 fL (7.4-10.4); Platelet Count 246 thou/uL (130-400); RBC Distribution Width 12.5 % (11.5-14.5); Red Blood Cell (RBC) Count 4.24 mill/uL (4.20-5.40); White Blood Cell (WBC) Count 8.2 thou/uL (4.8-10.8)
[2021-08-23 23:14] LABS: ALT (SGPT) 14 U/L (8-55); AST (SGOT) 15 U/L (5-34); Albumin 3.9 g/dL (3.4-4.8); Alkaline Phosphatase 59 U/L (40-110); Anion Gap 14 mmol/L (10-20); BUN (Urea Nitrogen) 17 mg/dL (9.8-20.1); Bilirubin, Total 0.5 mg/dL (0.2-1.2); Calc. Creatinine Clearance 0 mL/min (70-130); Calcium 9.6 mg/dL (7.8-10.44); Carbon Dioxide 23 mmol/L (23-31); Chloride 101 mmol/L (98-107); Globulin 3.9 g/dL (2.4-3.5); Glucose 116 mg/dL (83-110); Protein, Total 7.8 g/dL (5.8-8.1); Sodium 134 mmol/L (136-145)
[2021-08-24] MEDS ORDERED: Nitroglycerin 2% Ointment 1 INCH/1 GM Packet ONE (00:38)
[2021-08-24] MEDS ORDERED: Aspirin Chewable 81 MG TAB ONE (01:47)
[2021-08-24 02:14] LABS: Troponin I Less than 0.010 ng/mL (< 0.028)
[2021-08-24 05:11] LABS: Troponin I Less than 0.010 ng/mL (< 0.028)
[2021-08-24] MEDS ORDERED: Ondansetron PF 4 MG/2 ML Vial IVP PRN (08:14)
[2021-08-24] MEDS ORDERED: Acetaminophen 325 MG TAB PO PRN (08:14)
[2021-08-24] MEDS ORDERED: Enoxaparin Sodium 30 MG/0.3 ML SYRINGE SC SCH (08:15)
[2021-08-24] MEDS ORDERED: traMADol HCl 50 MG TAB PO PRN (08:16)
[2021-08-24] MEDS ORDERED: Enoxaparin Sodium 40 MG/0.4 ML SYRINGE ONE (08:36)
[2021-08-24] MEDS ORDERED: Enoxaparin Sodium 30 MG/0.3 ML SYRINGE ONE (08:45)
[2021-08-24] MEDS: Atenolol 25 MG TAB PO SCH (09:16)
[2021-08-24] MEDS: Lisinopril 10 MG TAB PO SCH (09:50)
[2021-08-24 09:53] LABS: Cardiac Risk 2.9 (Less than 4.5)
[2021-08-24 09:59] LABS: Hemoglobin A1c 6.5 % (4.0-6.0)
[2021-08-24 13:27] LABS: SARS-CoV-2 PCR by NAA Not Detected (NotDetected)
[2021-08-24 20:18] VITALS: BMI 34.4
[2021-08-25] MEDS ORDERED: ADENOSINE 60 MG/20 ML VIAL ONE (08:54)
[2021-08-25] MEDS ORDERED: Iopamidol 370 76% 100 ML VIAL ONE (09:19)
[2021-08-25] MEDS: Lisinopril 10 MG TAB PO SCH (12:37)
[2021-08-25] MEDS: Atenolol 25 MG TAB PO SCH (12:37)
[2021-08-25] MEDS: Enoxaparin Sodium 30 MG/0.3 ML SYRINGE SC SCH ×2 (12:38→12:41)
[2021-08-25] MEDS: predniSONE 20 MG TAB PO SCH (12:38)
[2021-08-26] MEDS: Atenolol 25 MG TAB PO SCH (08:56)
[2021-08-26] MEDS: Lisinopril 10 MG TAB PO SCH (08:56)
[2021-08-26] MEDS: predniSONE 20 MG TAB PO SCH (08:57)
[2021-08-26] MEDS: Enoxaparin Sodium 30 MG/0.3 ML SYRINGE SC SCH (08:57)
[2021-08-26] MEDS ORDERED: Lisinopril 10 MG TAB PO SCH (11:45)
[2021-08-26 12:15] VITALS: BP 178/75
[2021-08-26 12:16] VITALS: TEMP 98
[2021-08-27] MEDS ORDERED: predniSONE 20 MG TAB PO SCH (08:00)
[2021-08-30] MEDS ORDERED: predniSONE 20 MG TAB PO SCH (08:00)
[2021-08-31] MEDS ORDERED: Allopurinol 100 MG TAB PO SCH (21:00)
[2021-09-02] MEDS ORDERED: predniSONE 20 MG TAB PO SCH (08:00)
== END 2021-08-26 13:00 | disposition home or self-care (01) | DRG 644 ==
LOC: ERS 21:49 → ERHOLD 08-24 01:19 → 2NO 08-24 19:58 → OBSVTOIN 08-25 13:06
PROVIDERS: ADMIT Internal Medicine; ATTEND Internal Medicine
DX: D35.02 Benign neoplasm of left adrenal gland (principal); E87.1 Hypo-osmolality and hyponatremia; I16.1 Hypertensive emergency; Z20.822 Contact with and (suspected) exposure to COVID-19; I10 Essential (primary) hypertension; I44.7 Left bundle-branch block, unspecified; M10.9 Gout, unspecified; I08.3 Combined rheumatic disorders of mitral, aortic and tricuspid valves; E78.5 Hyperlipidemia, unspecified; Z82.3 Family history of stroke; Z82.49 Family history of ischemic heart disease and other diseases of the circulatory system; Z79.899 Other long term (current) drug therapy; Z79.82 Long term (current) use of aspirin
CPT/HCPCS: 36415; 70450; 74178; 78452; 80053; 80061; 82088; 82533; 83036; 83835; 84244; 84484; 85025; 93005; 93017; 93306; 96372; A9500; G0378; J0153; J1650; J7512; Q9967; U0003; U0005

== ENCOUNTER 2023-04-17 12:15 | Inpatient (IN) | payer MEDICAID, OTHER, SELFPAY ==
[~2023-04-17 12:15] MED LIST: Iopamidol-370 76% 500 ML MDV (1 ML CHARGE) ONE
[2023-04-17 12:47] LABS: #Monocytes 0.6 thou/uL (0.11-0.59); #Neutrophils 6.1 thou/uL (1.40-6.50); %Basophils 0.4 % (0.0-1.0); %Eosinophils 0.3 % (0.0-10.0); %Lymphocytes 25.7 % (21.0-51.0); %Monocytes 6.4 % (0.0-10.0); %Neutrophils 66.8 % (42.0-75.0); Hematocrit 34.3 % (36.0-47.0); Hemoglobin 11.4 g/dL (12.0-16.0); Mean Corpuscular HGB CONC 33.2 g/dL (32.0-36.0); Mean Corpuscular Hemoglobin 29.6 pg (27.0-31.0); Mean Corpuscular Volume 89.1 fl (78.0-98.0); Mean Platelet Volume 8.8 fL (7.4-10.4); Platelet Count 265 10x3/uL (130-400); RBC Distribution Width 13.6 % (11.5-14.5); Red Blood Cell (RBC) Count 3.85 mill/uL (4.20-5.40); White Blood Cell (WBC) Count 9.2 10x3/uL (4.8-10.8)
[2023-04-17 13:05] LABS: CK (CPK) 48 U/L (29-168); Lipase 20 U/L (8-78); Magnesium 1.7 mg/dL (1.6-2.6)
[2023-04-17 13:08] LABS: PTT 26.2 sec (22.9-36.1); Prothrombin Time 14.1 sec (12.0-14.7); Troponin I Less than 0.010 ng/mL (< 0.028)
[2023-04-17 14:20] LABS: Bacteria/HPF None Seen HPF (None Seen); Bilirubin Negative (Negative); Blood, Urine Negative (Negative); CAUTI Indications for Culture Alt mental st,lethar; Clarity Clear (Clear); Glucose, Urine (Dipstick) >=1000 mg/dL (Negative); Ketone, Urine Negative (Negative); Leukocyte Negative Leu/uL (Negative); Nitrite Negative (Negative); Protein, Urine (Dipstick) Negative (Neg-Trace); RBC/HPF 0-3 HPF (0-3); Specific Gravity, Urine 1.015 (1.002-1.036); Squamous Epithelial 0-3 HPF (0-3); Urobilinogen Normal mg/dL (Less than 2); WBC/HPF 0-3 HPF (0-3); pH, Urine 6.5 (5.0-9.0)
[2023-04-17 14:22] LABS: Urine Culture Reflex No No
[2023-04-17] MEDS ORDERED: Aspirin 325 MG TAB ONE ×2 (14:50→14:53)
[2023-04-17] MEDS ORDERED: Dextrose 50% Abboject 50 ML SYRINGE SLOW IVP PRN (15:07)
[2023-04-17] MEDS ORDERED: HumaLOG 300 UNITS/3 ML VIAL SC PRN ×2 (15:07)
[2023-04-17] MEDS ORDERED: Dextrose 5% in Water 1,000 ML IV PRN (15:07)
[2023-04-17] MEDS ORDERED: Glucagon 1 MG/ML KIT IM PRN (15:07)
[2023-04-17] MEDS ORDERED: hydrALAZINE 20 MG/ML VIAL SLOW IVP PRN (15:07)
[2023-04-17] MEDS ORDERED: Ondansetron PF 4 MG/2 ML Vial IVP PRN (15:10)
[2023-04-17] MEDS ORDERED: Acetaminophen 325 MG TAB PO PRN (15:10)
[2023-04-17] MEDS ORDERED: Acetaminophen 650 MG Suppository PR PRN (15:10)
[2023-04-17] MEDS ORDERED: Ondansetron ODT 4 MG TAB PO PRN (15:10)
[2023-04-17] MEDS ORDERED: Clopidogrel Bisulfate 300 MG TAB PO SCH (15:45)
[2023-04-17 17:53] LABS: Lactic Acid 2.7 mmol/L (0.5-2.2)
[2023-04-17 23:01] VITALS: BMI 28.5
[2023-04-17] MEDS: Atorvastatin Calcium 40 MG TAB PO SCH (23:04)
[2023-04-17] MEDS: Sodium Chloride 0.9% 1,000 ML IV SCH (23:05)
[2023-04-17 23:28] LABS: Lactic Acid 2.3 mmol/L (0.5-2.2)
[2023-04-18 05:02] LABS: #Eosinphils 0.2 thou/uL (0.0-0.7); #Monocytes 0.9 thou/uL (0.11-0.59); #Neutrophils 5.7 thou/uL (1.40-6.50); %Basophils 0.4 % (0.0-1.0); %Eosinophils 1.8 % (0.0-10.0); %Lymphocytes 28.7 % (21.0-51.0); %Monocytes 9.4 % (0.0-10.0); %Neutrophils 59.2 % (42.0-75.0); Hematocrit 34.9 % (36.0-47.0); Hemoglobin 11.4 g/dL (12.0-16.0); Mean Corpuscular HGB CONC 32.7 g/dL (32.0-36.0); Mean Corpuscular Hemoglobin 29.6 pg (27.0-31.0); Mean Corpuscular Volume 90.6 fl (78.0-98.0); Mean Platelet Volume 8.7 fL (7.4-10.4); Platelet Count 253 10x3/uL (130-400); RBC Distribution Width 13.7 % (11.5-14.5); Red Blood Cell (RBC) Count 3.85 mill/uL (4.20-5.40); White Blood Cell (WBC) Count 9.7 10x3/uL (4.8-10.8)
[2023-04-18 05:10] LABS: Hemoglobin A1c 6.6 % (4.0-6.0)
[2023-04-18 05:21] LABS: Anion Gap 14 mmol/L (10-20); BUN (Urea Nitrogen) 20 mg/dL (9.8-20.1); Calc. Creatinine Clearance 35 mL/min (70-130); Calcium 9.2 mg/dL (7.8-10.44); Carbon Dioxide 20 mmol/L (23-31); Cardiac Risk 3.3 (Less than 4.5); Chloride 104 mmol/L (98-107); Cholesterol 166 mg/dl (< 200 Desired); Estimated GFR 37; Glucose 105 mg/dL (83-110); HDL Cholesterol 51 mg/dL (>60 Neg Risk); LDL Cholesterol, Calculated 79 mg/dL; Potassium 4.2 mmol/L (3.5-5.1); Sodium 134 mmol/L (136-145); Triglycerides 181 mg/dL (Less than 150)
[2023-04-18 05:45] LABS: Lactic Acid 1.5 mmol/L (0.5-2.2)
[2023-04-18] MEDS: Aspirin 81 mg Enteric Coated Tablet PO SCH (10:33)
[2023-04-18] MEDS: Clopidogrel Bisulfate 75 MG TAB PO SCH (10:33)
[2023-04-18] MEDS: Atorvastatin Calcium 40 MG TAB PO SCH (21:02)
[2023-04-18] MEDS: Sodium Chloride 0.9% 1,000 ML IV SCH (22:03)
[2023-04-19 05:42] LABS: Anion Gap 14 mmol/L (10-20); BUN (Urea Nitrogen) 17 mg/dL (9.8-20.1); Calc. Creatinine Clearance 38 mL/min (70-130); Calcium 8.8 mg/dL (7.8-10.44); Carbon Dioxide 18 mmol/L (23-31); Chloride 108 mmol/L (98-107); Estimated GFR 41; Glucose 89 mg/dL (83-110); Potassium 4.2 mmol/L (3.5-5.1); Sodium 136 mmol/L (136-145)
[2023-04-19] MEDS: Aspirin 81 mg Enteric Coated Tablet PO SCH (09:28)
[2023-04-19] MEDS: Clopidogrel Bisulfate 75 MG TAB PO SCH (09:28)
[2023-04-19] MEDS: Sodium Chloride 0.9% 1,000 ML IV SCH (14:01)
[2023-04-19 16:04] VITALS: BP 138/65; TEMP 98
== END 2023-04-19 16:30 | disposition home or self-care (01) | DRG 65 ==
LOC: ERS 12:15 → ERHOLD 13:45 → OBSVTOIN 13:45 → 2SE 20:57
PROVIDERS: ADMIT Internal Medicine; ATTEND Family Medicine
DX: I63.512 Cerebral infarction due to unspecified occlusion or stenosis of left middle cerebral artery (principal); E87.20 Acidosis, unspecified; I12.9 Hypertensive chronic kidney disease with stage 1 through stage 4 chronic kidney disease, or unspecified chronic kidney disease; N18.9 Chronic kidney disease, unspecified; E78.5 Hyperlipidemia, unspecified; R47.1 Dysarthria and anarthria; D63.1 Anemia in chronic kidney disease; D35.00 Benign neoplasm of unspecified adrenal gland; I65.22 Occlusion and stenosis of left carotid artery; M10.9 Gout, unspecified; E11.22 Type 2 diabetes mellitus with diabetic chronic kidney disease; N18.30 Chronic kidney disease, stage 3 unspecified; Z98.41 Cataract extraction status, right eye; Z79.899 Other long term (current) drug therapy; Z79.82 Long term (current) use of aspirin; Z98.42 Cataract extraction status, left eye; Z82.49 Family history of ischemic heart disease and other diseases of the circulatory system
CPT/HCPCS: 36415; 36416; 70450; 70496; 70498; 70551; 71045; 80048; 80061; 81001; 82550; 83036; 83605; 83690; 83735; 84443; 84484; 85025; 85610; 85730; 93005; 93306; 95711; 95819; 95957; J1815; J7050; Q9967